=== PATIENT | female | born 1990 | race Hispanic/Latino ===

== ENCOUNTER 2018-02-28 03:59 | Inpatient (IN) | payer SELFPAY ==
[2018-02-28 04:47] LABS: ALT (SGPT) 16 U/L (8-55); AST (SGOT) 26 U/L (5-34); Albumin 4.8 g/dL (3.5-5.0); Alkaline Phosphatase 63 U/L (40-150); Anion Gap 11 mmol/L (10-20); BUN (Urea Nitrogen) 10 mg/dL (7.0-18.7); Bilirubin, Total 0.9 mg/dL (0.2-1.2); Calc. Creatinine Clearance 0 mL/min (70-130); Calcium 9.6 mg/dL (7.8-10.44); Carbon Dioxide 22 mmol/L (22-29); Chloride 104 mmol/L (98-107); Estimated GFR-MDRD 82; Globulin 3.7 g/dL (2.4-3.5); Glucose 135 mg/dL (70-105); Lipase 4 U/L (8-78); Potassium 3.4 mmol/L (3.5-5.1); Protein, Total 8.5 g/dL (6.0-8.3); Sodium 134 mmol/L (136-145)
[2018-02-28] MEDS ORDERED: Ondansetron ODT 4 MG TAB ONE (04:47)
[2018-02-28] MEDS ORDERED: Fentanyl 100 MCG/2 ML VIAL ONE (04:48)
[2018-02-28 04:50] LABS: Band 2 % (5-11); Eosinophils 4 % (0-10); Lymphocytes 58 % (21-51); MDiff Complete? YES; Mean Corpuscular HGB CONC 32.3 g/dL (32.0-36.0); Mean Corpuscular Hemoglobin 24.8 pg (27.0-31.0); Mean Corpuscular Volume 76.8 fl (81.0-99.0); Mean Platelet Volume 8.7 fL (7.4-10.4); Monocytes 4 % (0-10); Neutrophil 32 % (42-75); PLT Morphology Comment Appears Adequate; Platelet Count 245 thou/uL (130-400); RBC Distribution Width 19.9 % (11.5-14.5); Red Blood Cell (RBC) Count 4.42 mill/uL (4.20-5.40); White Blood Cell (WBC) Count 7.3 thou/uL (4.8-10.8)
[2018-02-28 06:28] LABS: Bilirubin Small (Negative); Blood, Urine Moderate (Negative); Clarity CLOUDY (Clear); Glucose, Urine (Dipstick) Negative (Negative); Leukocyte Small (Negative); Nitrite Negative (Negative); Protein, Urine (Dipstick) Trace mg/dL (Neg-Trace); Specific Gravity, Urine 1.029 (1.002-1.036); pH, Urine 5.5 (5.0-9.0)
[2018-02-28 06:33] LABS: Pregnancy Test - Urine (BHCG) Negative (Negative); Pregu Control Background? CLEAR/WHITE (CLR/WHITE); Pregu Control Bar Appear? YES (CONTROL BAR); Specific Gravity 1.029 (1.002-1.036)
[2018-02-28 07:18] LABS: Bacteria/HPF 1+ HPF (None Seen); Hyaline Casts/LPF NONE SEEN LPF (0-3 Hyaline); Squamous Epithelial 0-3 HPF (0-3); WBC/HPF 0-3 HPF (0-3)
[2018-02-28 07:25] LABS: Crystals/HPF RARE CA OXALATE HPF (Negative)
[2018-02-28] MEDS ORDERED: Mineral Oil ENEMA PR SCH (09:15)
--- NOTE | 2018-02-28 09:15 | CT ---
PRELIMINARY REPORT/[facility]/EMERGENTY AFTER-HOURS PROCEDURE Addendum created by Barney Crum MD on 02/28/2018 7:49 AM Central Time ([place] & [place]) CT images from were subsequently submitted for review. It appears the segment of sigmoid collapse/obstruction is new from prior. Initial Report created on 02/28/2018 7:27 AM Central Time ([place] & [place]) CT Abdomen and Pelvis With Intravenous Contrast CLINICAL HISTORY: 27 years old, female; Pain and signs and symptoms; Constipation; Abdominal pain; history of surgery f or imperforate anus with subsequent episodes of bowel obstruction. TECHNIQUE: Axial computed tomography images of the abdomen and pelvis with intravenous contrast. Coronal reforma tted images were created and reviewed. COMPARISON: No relevant prior studies available. FINDINGS: Lung bases: The visualized portions of the lung bases are normal. ABDOMEN: Liver: There are no focal liver lesions identified. Gallbladder and bile ducts: The gallbladder is normal. There is no evidence of biliary ductal dilatio n. The gallbladder is normal. There is no evidence of biliary ductal dilation. No calcified stones. Pancreas: The pancreas appears normal. No ductal dilation. Spleen: The spleen is normal. Adrenals: The adrenal glands are normal. Kidneys and ureters: The kidneys appear normal. No hydronephrosis. Stomach and bowel: There is marked retention of stool throughout the colon with dilatation of the rec magalys to 10.5 cm with collapse of the sigmoid colon and wall thickening suspicious for obstruction and/ or volvulus. The stomach is normal. The duodenum is unremarkable. PELVIS: Appendix: A normal appendix is identified. Bladder: Normal. No mass. Reproductive: The uterus is normal. ABDOMEN and PELVIS: Intraperitoneal space: Normal. No free air. No significant fluid collection. Bones/joints: No acute fracture. No dislocation. Soft tissues: Normal. Vasculature: Normal. No abdominal aortic aneurysm. Lymph nodes: Normal. No enlarged lymph nodes. IMPRESSION: There is marked retention of stool throughout the colon with dilatation of the rectum to 10.5 cm with collapse of the sigmoid colon and wall thickening suspicious for obstruction and/or volvulus. Correlation with prior imaging (not currently available) is advised. THIS REPORT CONTAINS FINDINGS THAT MAY BE CRITICAL TO PATIENT CARE. The findings were verbally communicated via telephone conference with Dr. Chan at 7:26 AM CDT on 02/28/2018. Th e findings were acknowledged and understood. Thank you for allowing us to participate in the care of your patient. Dictated and Authenticated by: Barney Crum MD 02/28/2018 7:27 AM Central Time ([place] & [place]) FINAL REPORT CT ABDOMEN AND PELVIS WITH CONTRAST: There is marked colonic stool retention involving the rectum and distal sigmoid colon. A portion of t he sigmoid colon is nondistended with stool as detailed in the preliminary report. There is some resi dual wall thickening of the sigmoid colon which may be chronic in nature within this area. The proxim al sigmoid colon is distended with prominent amounts of stool. No volvulus is demonstrated. There is a moderate amount of retained stool within the remaining distending colon, transverse colon, and cec um. Findings are consistent with severe chronic constipation. POS: JANIE
[2018-02-28] MEDS ORDERED: Polyethylene Glycol 3350 17 GM Packet PO ONE (10:15)
[2018-02-28] MEDS ORDERED: Sodium Chloride 0.9% 1,000 ML IV SCH (13:15)
[2018-02-28] MEDS ORDERED: GoLYTELY 4,000 ml Bottle PO SCH (13:15)
[2018-02-28 17:04] VITALS: BMI 24.3
[2018-02-28] MEDS ORDERED: Acetaminophen 500 MG TAB PO SCH (18:30)
[2018-02-28] MEDS ORDERED: Ondansetron HCl/PF 4 MG/2 ML Vial IVP PRN (19:27)
[2018-02-28] MEDS ORDERED: Ondansetron ODT 4 MG TAB PO PRN (19:27)
[2018-02-28] MEDS: Senokot 8.6 MG TAB PO SCH (21:06)
[2018-02-28] MEDS: Famotidine 20 MG TAB PO SCH (21:06)
[2018-02-28] MEDS: Milk Of Magnesia 30 ML UDCUP PO SCH (21:07)
[2018-02-28] MEDS: Bisacodyl 10 MG SUPP PR SCH (21:10)
[2018-02-28] MEDS: Sodium Chloride 0.9% 1,000 ML IV SCH (21:11)
[2018-03-01] MEDS ORDERED: Acetaminophen 500 MG TAB PO PRN (00:30)
--- NOTE | 2018-03-01 03:00 | HP ---
PRIMARY CARE PHYSICIAN: Luis A beltran. CHIEF COMPLAINT: Abdominal pain. HISTORY OF PRESENT ILLNESS: This is a 27-year-old female who presents to [facility] Emergency Department complaining of increasing abdominal pain, worsening over the last 24 hours, wa urbano her from sleep. Patient states she has longstanding history of constipation with a similar pres entation approximately 2 years ago to [facility] with obstipation, constipation, needing man ual disimpaction. Patient has tried increasing her fluid intake, MiraLax T as well as enemas at home without relief. Patient states that she has not had a significant bowel movement since 11/2017. James castro states she has had some small amounts of liquidy stool, but no significant volume since spring. Patient admits to history of difficulty with bowel movements after diagnosed with imperfora te anus as a child undergoing a colostomy with subsequent reanastomosis. Patient admits she underwen t a for her second child who is now 6 months of age without complication. Patient denies a [place] travel history, recent trauma, injury, or difficulty with urination. Patient states she has a sev ere cramping when attempting to have a bowel movement or bear down. In the emergency room, the patie nt underwent general evaluation including CT of the abdomen and pelvis showing massive stool retentio n with colonic dilation. Patient received multiple medications to include a mineral oil enema, Leonor ax, Zofran, normal saline, and fentanyl x1. Patient had no significant stool passage and was referre d to the Hospitalist Service for evaluation. PAST MEDICAL HISTORY: 1. 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 2. Chronic constipation. PAST SURGICAL HISTORY: 1. Status post colostomy with subsequent reanastomosis. 2. Status post section x2. CURRENT MEDICATIONS: MiraLax p.r.n. ALLERGIES: No known drug allergies. FAMILY HISTORY: No inheritable diseases per patient report. SOCIAL HISTORY: Patient is single, accompanied by her parents in the hospital. No current alcohol, tobacco, or illicit drug use. Resides in [place], [place]. Two children. REVIEW OF SYSTEMS: The following complete review of systems was otherwise negative, except as stated per HPI: Constitutional: Weight loss or gain, ability to conduct usual activities. Skin: Rash, i tching. Eyes: Double vision, pain. ENT/Mouth: Nose bleeding, neck stiffness, pain, tenderness. C ardiovascular: Palpitations, dyspnea on exertion, orthopnea. Respiratory: Shortness of breath, whe ezing, cough, hemoptysis, fever, or night sweats. Gastrointestinal: Poor appetite, abdominal pain, heartburn, nausea, vomiting, constipation, or diarrhea. Genitourinary: Urgency, frequency, dysuria, nocturia. Musculoskeletal: Pain, swelling. Neurologic/Psychiatric: Anxiety, depression. Allergy /Immunologic: Skin rash, bleeding tendency. PHYSICAL EXAMINATION: VITAL SIGNS: On admission, blood pressure 123/84, pulse 73, respiratory rate is 20, temperature 97.5 degrees Fahrenheit, O2 saturation 97% on room air. GENERAL APPEARANCE: This is a 27-year-old female, alert and oriented x3, pleasant, conversa nt, in no acute distress. HEENT: Pupils are equal, round, and reactive to light and accommodation. Extraocular muscles are in tact. No scleral icterus, no conjunctival injection. Nares patent. OP is clear. Teeth in good rep air. NECK: Supple, no cervical adenopathy, no thyromegaly, no carotid bruits, no JVD appreciated. Cervic al spine with full active and passive range of motion. CHEST: Lungs are clear to auscultation bilaterally. CARDIOVASCULAR: S1, S2, without noted murmur, rub, or gallop. ABDOMEN: Distended with tenderness to palpation diffusely. Bowel sounds are present diminished. Sanchez rgical scars in the abdomen consistent with prior surgical history. No rebound or guarding noted. EXTREMITIES: Warm and dry with fair turgor. No clubbing, cyanosis, or asymmetric edema appreciated. Pulses palpable distally at the dorsalis pedis, posterior tibial, and popliteal arteries bilaterall y. Capillary refill less than 2 seconds. NEUROLOGIC: Cranial nerves II-XII are grossly intact. No focal or lateralizing signs appreciated. PERTINENT LABORATORY DATA AND X-RAY FINDINGS: Sodium 134, potassium 3.4, chloride 104, CO2 of 22, BU N 10, creatinine 0.83, glucose 135, calcium 9.6. LFTs within normal limits. Lipase 4. CBC showed a white blood cell count 7.3, hemoglobin 11, hematocrit 34, MCV 77, platelet count 245 with 32% neutro phils. Urinalysis shows positive ketones, small leukocyte esterase. Urine beta hCG negative on 02/10. CT of the abdomen and pelvis dated 02/28/2018, showed marked colonic stool retention in the rectum and distal sigmoid colon and proximal sigmoid colon is distended with prominent amount of stoo l. No volvulus noted. ASSESSMENT AND PLAN: 1. Obstipation/severe constipation. Patient will be observed on the medical floor. We will consult GI service for recommendations and potential manual disimpaction. Patient with massive amount of re tained stool on CT imaging. We will attempt GoLYTELY in addition to Senokot, MiraLax, magnesium hydr oxide, and Dulcolax suppositories. Patient likely will need manual disimpaction due to the extensive volume. We will continue intravenous normal saline 100 mL per hour. 2. Microcytic anemia. Suspect secondary to iron deficiency. No current evidence to suggest acute b lood loss. Repeat CBC in the a.m. 3. Hypokalemia. Potassium supplementation and repeat potassium level in the a.m. 4. Abdominal pain secondary to #1. Continue symptomatic and supportive management. Tylenol 1000 mg p.o. q.6 hours p.r.n. 5. Prophylaxis. Sequential compression devices while in bed. Pepcid 20 mg p.o. b.i.d. 6. Code status is FULL. Surrogate medical decision maker is the patient's mother.
[2018-03-01 05:34] LABS: Band 6 % (5-11); Eosinophils 2 % (0-10); Hemoglobin 8.7 g/dL (12.0-16.0); Lymphocytes 27 % (21-51); MDiff Complete? YES; Mean Corpuscular HGB CONC 33.3 g/dL (32.0-36.0); Mean Corpuscular Hemoglobin 25.8 pg (27.0-31.0); Mean Corpuscular Volume 77.3 fL (78.0-98.0); Mean Platelet Volume 8.6 fL (7.4-10.4); Monocytes 3 % (0-10); Neutrophil 62 % (42-75); PLT Morphology Comment Appears Adequate; Platelet Count 195 thou/uL (130-400); RBC Distribution Width 19.6 % (11.5-14.5); Red Blood Cell (RBC) Count 3.39 mill/uL (4.20-5.40); White Blood Cell (WBC) Count 7.3 thou/uL (4.8-10.8)
[2018-03-01 06:07] LABS: Anion Gap 10 mmol/L (10-20); BUN (Urea Nitrogen) 6 mg/dL (7.0-18.7); Calc. Creatinine Clearance 119 mL/min (70-130); Calcium 7.8 mg/dL (7.8-10.44); Carbon Dioxide 24 mmol/L (22-29); Chloride 107 mmol/L (98-107); Estimated GFR-MDRD Greater than 90; Glucose 78 mg/dL (70-105); Potassium 3.2 mmol/L (3.5-5.1); Sodium 138 mmol/L (136-145)
[2018-03-01] MEDS: Milk Of Magnesia 30 ML UDCUP PO SCH ×4 (09:00→21:56)
[2018-03-01] MEDS: Sodium Chloride 0.9% 1,000 ML IV SCH ×2 (09:00→18:54)
[2018-03-01] MEDS: Senokot 8.6 MG TAB PO SCH ×2 (09:00→21:56)
[2018-03-01] MEDS: Bisacodyl 10 MG SUPP PR SCH ×3 (09:05→21:54)
[2018-03-01] MEDS: Famotidine 20 MG TAB PO SCH ×2 (09:06→21:54)
--- NOTE | 2018-03-01 16:19 | PDOC.PN ---
- Subjective Encounter Start Date: 03/01/18 Encounter Start Time: 16:05 Subjective: f/u for severe constipation and fecal impaction. No significant BM with -: Golytely, Senna and Dulcolax. - Objective Resuscitation Status: Resuscitation Status FULL:Full Resuscitation MAR Reviewed: Yes Vital Signs & Weight: Vital Signs (12 hours) Temp Pulse Resp BP BP Pulse Ox 03/01/18 15:27 98.9 F 63 16 121/82 97 03/01/18 14:38 98.9 F 63 16 100 03/01/18 13:40 98.4 F 68 18 133/83 100 03/01/18 11:32 99.0 F 66 12 110/67 98 03/01/18 08:20 98.9 F 68 12 03/01/18 08:05 98.9 F 68 12 111/71 95 03/01/18 04:55 66 18 97/56 L 95 Weight Admit Weight 137 lb Weight 137 lb I&O: 02/28/18 03/01/18 03/02/18 06:59 06:59 06:59 Intake Total 2188 Output Total 700 Balance 1488 Result Diagrams: 03/01/18 04:01 03/01/18 04:01 Additional Labs: Laboratory Tests 02/28/18 02/28/18 04:23 04:23 Hgb 11.0 L Potassium 3.4 L Phys Exam - Physical Examination Constitutional: NAD HEENT: PERRLA, sclera anicteric, oral pharynx no lesions Neck: no nodes, no JVD, supple, full ROM Respiratory: no wheezing, no rales, no rhonchi, clear to auscultation bilateral S1, S2 Cardiovascular: RRR, no significant murmur, no rub, gallop TTP diffusely Gastrointestinal: soft, positive bowel sounds Musculoskeletal: no edema, pulses present Neurological: non-focal, normal sensation, moves all 4 limbs Psychiatric: normal affect, A&O x 3 Skin: no rash, normal turgor, cap refill <2 seconds Dx/Plan (1) Fecal impaction Code(s): K56.41 - FECAL IMPACTION Status: Acute Comment: Consult GI and Gen Surgery for assistance, likely will need manual disimpaction under anesthesia due to volume of retained stool (2) Abdominal pain Code(s): R10.9 - UNSPECIFIED ABDOMINAL PAIN Status: Acute Qualifiers: Abdominal location: generalized Qualified Code(s): R10.84 - Generalized abdominal pain Comment: Secondary to #1, continue supportive mgmt, see above (3) Obstipation Code(s): K59.00 - CONSTIPATION, UNSPECIFIED Status: Chronic Comment: See #1 for mgmt, stool softeners, suppositories (4) Hypokalemia Code(s): E87.6 - HYPOKALEMIA Status: Acute Comment: K-dur 40meq BID, repeat K+ level in am - Plan out of bed/ambulate, DVT proph w/SCDs Stable overall -: Convert to inpt status to fecal impaction -: Continue IVF's NS 100ml/h -: KCL 40meq BID -: Gen Surgery consult for likely disimpaction under anesthesia * AM lab: BMP, CBC
[2018-03-01] MEDS: Potassium Chloride 20 MEQ TAB PO SCH (17:57)
[2018-03-01] MEDS ORDERED: Mineral Oil PER 1 ML PR SCH (18:00)
[2018-03-01] MEDS ORDERED: GLYCERIN FS SCH (18:00)
--- NOTE | 2018-03-01 19:43 | CON ---
DATE OF CONSULTATION: 03/01/2018 REASON FOR CONSULTATION: Abdominal pain and constipation. CONSULTING PHYSICIAN: Dr. Ike Lindo. HISTORY OF PRESENT ILLNESS: The patient is a 27-year-old female with past medical history of imperforate anus status post surgical correction with colostomy placement and ultimately reanastomosis as well as chronic constipation presenting with complaints of increased abdominal pain. She states that in 11/2017, she underwent in [place], [place] with no perioperative complications, but was given pain medications on discharge including hydrocodone and a stool softener. However, since that time she was unable to have a true solid bowel movement where she would go approximately 2-3 weeks with only a small volume of liquid bowel movement consisting primarily of brown water. As such, she has not had a solid bowel movement since 11/2017 and has been experiencing progressive worsening of her abdominal pain in the meantime. Her abdominal pain is located primarily in the right lower quadrant, suprapubic, and left lower quadrant of her abdomen. The pain is characterized as an aching/cramping type sensation and will radiate to the entire lower abdomen. It is constant and reaches a severity of 6-7/10. There is no clear alleviating or exacerbating factors. This is also associated with the inability to adequately have a bowel movement where she describes that she has the sensation that something is there, but "he feels like it gets blocked by something." With worsening of her abdominal pain over the last few weeks, this prompted her to seek admission for further evaluation. While in the ER, she underwent a CT scan of the abdomen and pelvis showing massive stool retention and colonic dilatation with the rectum reaching approximately 10.5 cm in diameter. As an outpatient, she had been taking MiraLax 1-2 capsules per day along with stool softeners, mineral oil and Zofran as needed with minimal relief in her symptoms. REVIEW OF SYSTEMS: A 10-category review of systems was obtained with all responses negative except for the pertinent positives as well as in the HPI. PAST MEDICAL HISTORY: Imperforate anus status post colostomy and reanastomosis , chronic constipation. PAST SURGICAL HISTORY: Left-sided colostomy with colonic reanastomosis, C- sections x2. FAMILY HISTORY: Denies any GI malignancies. SOCIAL HISTORY: Denies any tobacco, alcohol or illicit drug use. OUTPATIENT MEDICATIONS: MiraLax 1-2 capsules per day, stool softener. ALLERGIES: No known drug allergies. PHYSICAL EXAMINATION: VITAL SIGNS: Temperature 98.9, pulse 63, blood pressure 121/82, respiratory rate 16, satting 97% on room air. GENERAL: The patient is lying in bed in no acute distress. Alert and oriented x4. NECK: Supple. No JVD noted. CARDIOVASCULAR: Regular rate and rhythm with no discernible murmurs, gallops or rubs. RESPIRATORY: Clear to auscultation bilaterally with no discernible wheezes or rales. ABDOMEN: Hypoactive bowel sounds, soft, mild to moderate abdominal distention. Tenderness to palpation into both light and deep palpation in the periumbilical, left flank and lower abdominal quadrants. A mass was palpated in the left flank extending into the left lower quadrant as well. EXTREMITIES: No cyanosis, clubbing or edema. LABORATORY DATA: CBC with a white blood cell count of 7.3, hemoglobin 8.7, hematocrit 26.2, and platelets 195. Chemistry with sodium of 138, potassium 3.2 , chloride 107, CO2 24, BUN 6, creatinine 0.69 and glucose 78. IMAGING DATA: CT of the abdomen/pelvis obtained on 02/28/2018 showed no focal liver lesions or gallbladder pathology; however, there was marked retention of stool throughout the colon with dilation of the rectum to 10.5 cm with collapse of the sigmoid colon and wall thickening which was felt to be more chronic in nature due to chronic constipation. There was also moderate amount of retained stool seen within the descending colon, transverse and cecum. ASSESSMENT AND PLAN: The patient is a 27-year-old female with past medical history of imperforate anus status post colostomy and reanastomosis and chronic constipation presenting with markedly increased amounts of colonic stool burden consistent with obstipation. Constipation. The patient is presenting with a recent history of childbirth in 11/2017 with a performed in [place], [place]. Upon discharge, she was given narcotics for pain relief related to the and since that time she has had significant difficulty having a bowel movement. Per patient, she was having approximately one small volume liquid bowel movement every 2-3 weeks in addition to progressively worsening abdominal pain over the last 2-3 months. As such, she has had significant difficulty having a solid stool bowel movement with the sensation that the stool is being blocked by something with increased abdominal pressure. Based on the CT scan findings on admission, she has a significant amount of retained stool within the left colon consistent with obstipation. Manual disimpaction was attempted today with a very large solid stool plug felt within the rectal vault that was only minimally amenable to disimpaction. I was able to break up the stool to a mild to moderate degree, but given the significant discomfort she experienced during the disimpaction, this might be better suited under general anesthesia. RECOMMENDATIONS: 1. We will consult General Surgery Service for evaluation of the patient and fecal disimpaction under general anesthesia. 2. We will hold off on additional administration of GoLYTELY until scheduled for the procedure. 3. We will order a Fleet's enema/tap water enema for further treatment or to break apart the existing stool plug. 4. Patient will need to be on a bowel regimen on discharge given the chronic nature of her constipation to probably include addition of linaclotide and/or MiraLax supplement. We will continue to follow. Please call with any questions. NNAMDI
--- NOTE | 2018-03-01 22:47 | CON ---
DATE OF CONSULTATION: 03/01/2018 CHIEF COMPLAINT: Constipation and obstipation. HISTORY OF PRESENT ILLNESS: This is a 27-year-old female who has a history of imperforate anus with previous ileoanal pull-through and temporary diverting colostomy as a child. She states that she has had chronic constipation, but no significant need for impaction in her early adult life. She had a in November of this year and since then she has had severe constipation and had very much diff iculty since then. She is now not have a bowel movement for a few weeks. She has tried multiple candi mas, she has tried multiple regimens as an outpatient. She is admitted for severe bloating and obstr uction of her colon from this impacted stool. Attempts disimpaction at the bedside by Dr. Church were unsuccessful. PAST MEDICAL HISTORY: Includes perforated anus, chronic constipation. PAST SURGICAL HISTORY: As above. MEDICINES: MiraLax p.r.n. ALLERGIES: No known drug allergies. FAMILY HISTORY: Noncontributory to GI malignancy or anesthesia related complications. SOCIAL HISTORY: She is single, lives in [place], 2 children. No smoking, alcohol, or other drugs. REVIEW OF SYSTEMS: Ten-system review of systems otherwise negative unless described above. PHYSICAL EXAMINATION: VITAL SIGNS: Blood pressure is 121/82, pulse 63, respirations 16. She is afebrile. HEENT: Sclerae are anicteric. Oropharynx clear. NECK: No lymphadenopathy. CHEST: Clear. HEART: Regular rate and rhythm. ABDOMEN: Soft but distended, tender suprapubic. No guarding or rebound. X-RAY FINDINGS: Review of her CT shows the large amount of retained stool in her left colon. ASSESSMENT: Impaction of stool with history of imperforate anus. PLAN: Manual disimpaction in the OR tomorrow. Plan additional enema in the morning.
[2018-03-02] MEDS: Sodium Chloride 0.9% 1,000 ML IV SCH ×4 (05:51→23:57)
[2018-03-02 06:18] LABS: Anion Gap 11 mmol/L (10-20); BUN (Urea Nitrogen) 7 mg/dL (7.0-18.7); Calc. Creatinine Clearance 124 mL/min (70-130); Carbon Dioxide 20 mmol/L (22-29); Chloride 109 mmol/L (98-107); Estimated GFR-MDRD Greater than 90; Glucose 63 mg/dL (70-105); Potassium 3.7 mmol/L (3.5-5.1); Sodium 136 mmol/L (136-145)
[2018-03-02 06:33] LABS: Eosinophils 1 % (0-10); Hemoglobin 8.7 g/dL (12.0-16.0); Lymphocytes 57 % (21-51); MDiff Complete? YES; Mean Corpuscular HGB CONC 32.1 g/dL (32.0-36.0); Mean Corpuscular Hemoglobin 25.4 pg (27.0-31.0); Mean Platelet Volume 8.7 fL (7.4-10.4); Monocytes 3 % (0-10); Neutrophil 39 % (42-75); Platelet Count 204 thou/uL (130-400); Red Blood Cell (RBC) Count 3.45 mill/uL (4.20-5.40)
[2018-03-02] MEDS ORDERED: GLYCERIN FS SCH (07:00)
[2018-03-02] MEDS ORDERED: Mineral Oil PER 1 ML PR SCH (07:00)
[2018-03-02] MEDS: Potassium Chloride 20 MEQ TAB PO SCH ×2 (10:59→18:27)
[2018-03-02] MEDS: Famotidine 20 MG TAB PO SCH ×2 (10:59→21:02)
[2018-03-02] MEDS: Bisacodyl 10 MG SUPP PR SCH (10:59)
[2018-03-02] MEDS: Milk Of Magnesia 30 ML UDCUP PO SCH ×3 (10:59→18:28)
[2018-03-02] MEDS: Senokot 8.6 MG TAB PO SCH ×2 (11:00→21:03)
[2018-03-02] MEDS ORDERED: Fentanyl 100 MCG/2 ML VIAL ONE (12:17)
[2018-03-02] MEDS ORDERED: Midazolam HCl 2 mg/2 ml Vial ONE (12:17)
--- NOTE | 2018-03-02 13:20 | OP ---
DATE OF PROCEDURE: 03/02/2018 PREOPERATIVE DIAGNOSIS: Fecal impaction. POSTOPERATIVE DIAGNOSES: Fecal impaction. PROCEDURE PERFORMED: Fecal disimpaction an exam under anesthesia. SURGEON: Curtis Fatima M.D. ANESTHESIA: General. ESTIMATED BLOOD LOSS: Minimal. COMPLICATIONS: None. SPECIMEN: None. FINDINGS: Significant amount of retained stool in the rectum, removed via impaction. No other patho logy in the entire exam and rectum anal canal. TECHNIQUE: The patient was taken to the operating room and placed supine on the table. After genera l anesthetic was obtained, she was placed in lithotomy position. Her perineum was prepped and draped in a sterile fashion. Two, then three fingers used to dilate the anal canal. Pushing suprapubic wi th left hand, the stools able to be disimpacted from the rectum below. There was a tear made anterio rly. There is a partial thickness through just the mucosa of the anal canal. It did not involve the posterior wall of the vagina. The rectal vault is completely empty at the end of the procedure. Th e patient is en route to recovery in stable condition. All instrument counts, needle counts, lap cou nts were correct.
[2018-03-02] MEDS ORDERED: Magnesium Citrate 300 ML BOT PO PRN (17:51)
--- NOTE | 2018-03-02 18:52 | PDOC.PN ---
- Subjective Encounter Start Date: 03/02/18 Encounter Start Time: 17:20 Subjective: f/u for fecal impaction s/p manual disimpaction under anesthesia. Feels -: less full and still sleepy from anesthesia. No N/V. - Objective Resuscitation Status: Resuscitation Status FULL:Full Resuscitation MAR Reviewed: Yes Vital Signs & Weight: Vital Signs (12 hours) Temp Pulse Resp BP Pulse Ox 03/02/18 13:40 97.7 F 65 18 125/87 98 03/02/18 11:00 97.9 F 65 18 111/77 97 03/02/18 08:53 97.9 F 65 18 98 03/02/18 07:24 98.9 F 87 18 147/99 H 98 Weight Admit Weight 137 lb Weight 137 lb I&O: 03/01/18 03/02/18 03/03/18 06:59 06:59 06:59 Intake Total 2188 1230 Output Total 700 Balance 1488 1230 Result Diagrams: 03/02/18 05:25 03/02/18 05:25 Additional Labs: Laboratory Tests 02/28/18 02/28/18 03/01/18 04:23 04:23 04:01 Hgb 11.0 L Potassium 3.4 L 3.2 L 03/01/18 04:01 Hgb 8.7 L Potassium Phys Exam - Physical Examination Constitutional: NAD pale, alert, responsive HEENT: PERRLA, sclera anicteric, oral pharynx no lesions Neck: no nodes, no JVD, supple, full ROM Respiratory: no wheezing, no rales, no rhonchi, clear to auscultation bilateral S1, S2 Cardiovascular: RRR, no significant murmur, no rub, gallop Gastrointestinal: soft, non-tender, no distention, positive bowel sounds Musculoskeletal: no edema, pulses present Neurological: non-focal, normal sensation, moves all 4 limbs Psychiatric: normal affect, A&O x 3 Skin: no rash, normal turgor, cap refill <2 seconds Dx/Plan (1) Fecal impaction Code(s): K56.41 - FECAL IMPACTION Status: Acute Comment: s/p manual disimpaction under anesthesia, continue bowel regimen, will need close follow up after discharge and custodial (2) Abdominal pain Code(s): R10.9 - UNSPECIFIED ABDOMINAL PAIN Status: Acute Qualifiers: Abdominal location: generalized Qualified Code(s): R10.84 - Generalized abdominal pain Comment: Secondary to #1, continue supportive mgmt, see above, resolving (3) Obstipation Code(s): K59.00 - CONSTIPATION, UNSPECIFIED Status: Chronic Comment: See #1 for mgmt, stool softeners, suppositories (4) Hypokalemia Code(s): E87.6 - HYPOKALEMIA Status: Acute Comment: K-dur 40meq BID, repeat K+ level in am (5) Microcytic anemia Code(s): D50.9 - IRON DEFICIENCY ANEMIA, UNSPECIFIED Status: Chronic Comment : Care Home iron supplementation and serial monitoring as outpt, CBC in am - Plan clinical social work therapist, out of bed/ambulate, DVT proph w/SCDs Stable currently -: Start Regular diet -: Continue IVF's another 24h -: KCL supplementation -: AM lab: CBC, Iron, Ferritin, Retic count * Likely home in 24h
--- NOTE | 2018-03-02 19:49 | PRG ---
DATE OF SERVICE: 03/02/2018 REASON FOR CONSULTATION: Constipation/obstipation. SUBJECTIVE: Patient did have some continued pain overnight, but this was ultimately relieved upon fe joel disimpaction in the operating room with anesthesia. Currently, she is doing well with no further complaints of abdominal pain, but rather abdominal soreness, both in her abdomen and at the anal vidhi fice. Currently, denies any nausea, vomiting, fevers, chills, dysphagia, odynophagia, diarrhea or co nstipation. OBJECTIVE: VITAL SIGNS: Temperature 97.7, pulse 65, blood pressure 125/87, respiratory rate 18, satting 98% on room air. GENERAL: Patient is lying in bed in no acute distress. Alert and oriented x4. CARDIOVASCULAR: Regular rate and rhythm. RESPIRATORY: Clear to auscultation bilaterally. ABDOMEN: Hypoactive bowel sounds, soft, nondistended, minimal tenderness to palpation in all abdomin al quadrants. EXTREMITIES: No cyanosis, clubbing or edema. LABORATORY DATA: CBC with a white blood cell count of 6.0, hemoglobin 8.7, hematocrit 27.2, platelet s 204. Chemistry with a sodium 136, potassium 3.7, chloride 109, carbon dioxide 20, BUN 7, creatinin e 0.66, glucose 63. IMAGING DATA: Operative report from 03/02/2018; details, dilation of the anal canal with manual disi mpaction through the rectum and a small anterior tear made during the procedure itself the rectum and proximal distal left colon was successfully disimpacted with a significant amount of stool removed f rom these areas. 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 1. Constipation. The patient is presenting with a history of imperforate anus that was surgically c orrected when she was a child with reanastomosis when she was younger. However, over the last 3 ramsey hs, she had been complaining of increased constipation since the of her last child and C-sectio n. Upon admittance to the hospital here during this hospitalization, she was noted to have a CT scan that showed significant amount of retained stool within the left colon consistent with obstipation. Bedside manual disimpaction was attempted on 03/01/2018 with a very large stool plug fell, but able to be adequately removed. She was ultimately taken to the operating room on 03/02/2018 and under ane sthesia was able to be successfully disimpacted, currently doing well with significant alleviation of her abdominal pain. RECOMMENDATIONS: 1. We will place patient on lubiprostone 24 mcg twice daily as part of maintenance therapy for chron ic constipation. 2. We will have magnesium citrate as needed for increased constipation while inpatient. 3. We would avoid any narcotics as this would predispose her to further constipation and probable im paction. 4. We will have the patient follow up in the GI clinic within 1-2 weeks of discharge for further nata luation and maintenance therapy. We will sign off at this time. Please call with any additional questions.
[2018-03-02] MEDS: Lubiprostone 24 MCG CAP PO SCH (21:25)
[2018-03-03 05:20] LABS: Reticulocyte Count 1.3 % (0.5-1.5)
[2018-03-03 07:40] LABS: Hemoglobin 9.4 g/dL (12.0-16.0); Mean Corpuscular HGB CONC 32.4 g/dL (32.0-36.0); Mean Corpuscular Hemoglobin 26.1 pg (27.0-31.0); Mean Corpuscular Volume 80.4 fL (78.0-98.0); Mean Platelet Volume 8.5 fL (7.4-10.4); Platelet Count 244 thou/uL (130-400); RBC Distribution Width 20.2 % (11.5-14.5); Red Blood Cell (RBC) Count 3.59 mill/uL (4.20-5.40); White Blood Cell (WBC) Count 6.4 thou/uL (4.8-10.8)
[2018-03-03] MEDS: Lubiprostone 24 MCG CAP PO SCH (08:26)
[2018-03-03] MEDS: Potassium Chloride 20 MEQ TAB PO SCH (08:26)
[2018-03-03] MEDS: Senokot 8.6 MG TAB PO SCH (08:27)
[2018-03-03] MEDS: Famotidine 20 MG TAB PO SCH (08:27)
[2018-03-03 09:04] LABS: Anisocytosis MODERATE=16-30 cells (100X) (0-5/hpf); Band 9 % (5-11); Eosinophils 6 % (0-10); Lymphocytes 32 % (21-51); MDiff Complete? YES; Monocytes 3 % (0-10); Neutrophil 50 % (42-75); Polychromasia SLIGHT = 2-3 cells (100X) (0-2/hpf)
[2018-03-03] MEDS: Sodium Chloride 0.9% 1,000 ML IV SCH (11:20)
--- NOTE | 2018-03-03 13:43 | DIS ---
DATE OF ADMISSION: 02/28/2018 DATE OF DISCHARGE: 03/03/2018 DISCHARGE DIAGNOSES: 1. Fecal impaction. 2. Status post manual disimpaction under anesthesia. 3. Abdominal pain secondary to #1, improved. 4. Obstipation. 5. History of imperforate anus. 6. Hypokalemia. 7. Microcytic anemia. CONSULTATIONS: Dr. Fatima with General Surgery Service. Dr. Church with GI service. PERTINENT LABORATORY AND X-RAY FINDINGS: Sodium ranged between 134-138, potassium ranged between 3.2 -3.7, serum iron level 23, ferritin 9.3, lipase 4. CBC showed a hemoglobin ranging between 8.7-11. CT of the abdomen and pelvis dated 02/28/2018 showed marked colonic stool retention in the rectum and distal sigmoid colon. Moderate amount of retained stool in the descending colon, transverse colon, and cecum. HOSPITAL COURSE: Patient was admitted to the medical floor after presenting with severe abdominal pa in with associated severe chronic constipation/obstipation and stool impaction. The patient with a h istory of imperforate anus from her childhood, status post reanastomosis, presenting with severe cons tipation. CT of the abdomen and pelvis confirmed the presence of large impaction in the rectum to th e transverse colon. The patient was placed on multiple medications including stool softeners and bow el stimulants without success. The patient received mineral oil enemas without success. The patient was evaluated by the GI and General Surgery Service with recommendations to proceed to the manual di simpaction under anesthesia. The patient underwent the procedure on 03/02/2018 with successful disim paction of the colon. The patient tolerated the procedure well and post procedure has been toleratin g regular oral intake with decreased abdominal discomfort. Overall, patient remained clinically stab le during the hospital course. I have examined the patient at the time of discharge and discussed pe rtinent laboratory findings as well as outpatient followup instructions. The patient verbalized unde rstanding and agreement and we will discharge home on 03/03/2018. DISCHARGE MEDICATIONS: 1. MiraLax 2 packs p.o. daily. 2. Magnesium citrate half a bottle twice daily. FOLLOWUP: Patient will follow up with the GI service with Dr. Church within 2 weeks after discharge. CONDITION ON DISCHARGE: Fair. ACTIVITY: Ad maryellen. DIET: Regular. CODE STATUS: FULL. DISPOSITION: Home, 03/03/2018. Total time in preparing and coordinating discharge 33 minutes.
[2018-03-03 14:02] VITALS: BP 114/79; TEMP 98.6
== END 2018-03-03 15:20 | disposition home or self-care (01) | DRG 390 ==
LOC: ERS 03:59 → 2SW 11:30 → OBSVTOIN 11:30 → SURG A 03-01 13:28
PROVIDERS: ADMIT Family Medicine; ATTEND Family Medicine
PROC: 0DCP7ZZ Extirpation of Matter from Rectum, Via Natural or Artificial Opening (ICD-10-PCS; principal; 2018-03-02)
DX: K56.41 Fecal impaction (principal); D50.9 Iron deficiency anemia, unspecified; E87.6 Hypokalemia; Z87.19 Personal history of other diseases of the digestive system
CPT/HCPCS: 36415; 74177; 80048; 80053; 81003; 81015; 81025; 82728; 83540; 83690; 85007; 85025; 85027; 85046; 96361; 96374; J2250; J3010; Q0162

== ENCOUNTER 2018-03-23 14:00 | Day surgery (SDC) | payer SELFPAY ==
[2018-03-22 12:38] VITALS: BMI 23.9
[2018-03-23] MEDS ORDERED: Lidocaine 1% PF 5 ML VIAL ONE (14:21)
[2018-03-23] MEDS ORDERED: PROPOFOL 200 MG/20 ML VIAL ONE (14:21)
[2018-03-23 15:27] LABS: BHCG - Serum Negative (NEGATIVE); Pregs Control Background? CLEAR/WHITE (CLR/WHITE); Pregs Control Bar Appear? YES (CONTROL BAR)
[2018-03-23] MEDS ORDERED: Fleet Enema 133 ML BOT PR SCH (17:45)
--- NOTE | 2018-03-24 10:26 | OP ---
DATE OF OPERATION: 03/23/2018 PREOPERATIVE DIAGNOSES: Recurrent problems with fecal impaction and abdominal pain and diarrhea. POSTOPERATIVE DIAGNOSES: Recurrent problems with fecal impaction and abdominal pain and diarrhea. PROCEDURE: Colonoscopy with fecal disimpaction. ANESTHESIA: TIVA. RECOMMENDATIONS: 1. Follow up with Dr. Bee in 1 week. 2. Start bowel regimen, will need to drink 1 gallon of GoLYTELY for the next 48 hours at home to hel p finish to clean out. 3. Then I would recommend MiraLax 17 grams in 8 ounces of water daily, Senokot-S p.o. b.i.d. 4. She will need to do a bowel regimen with rectal stimulation and enemas. This could be done eithe r every third day with Dulcolax suppository and Fleet enema or if this causes incontinence and that i mpairs her ability to function on a daily basis. She can pick one day a week preferably on the wee[place] nd to do a clean out with 2 or 3 bottles of magnesium citrate, Dulcolax suppositories and enemas unti l her bowels are clear. PROCEDURE IN DETAIL: The patient was informed the risks, benefits, possible complications of endosco py including perforation, reactions to medication and aspiration, informed consent was obtained. The patient was brought to endoscopy suite where she was sedated in gradual fashion. Once she was comfo rtable, rectal exam was performed revealing a large bowling ball size fecal impaction. This was main ly disimpacted and removed. Above this, there was other stool that was able to be brought down by fi nger digital disimpaction with pressure in the abdomen. Once remaining, the rectum was irrigat ed on three different occasions with Fleet enemas and tap water. It was able to clear it in past. O nce the stool was very soupy and liquid, the scope was carefully introduced in to the rectum and adva nced through the colon. We were able to advance this to other large areas of formed stool that past safely to the right colon. The cecal valve could be visualized, but the cecum could not. There was a large, but not of stool here in this region as well. The scope was removed. The patient does have very lax sphincter tone related to previous surgery for imperforate anus. These instructions were given to her for a bowel regimen, so alternatively to move to something like a colostomy where she could extend her bowel regimen on a daily basis without problems with incontine nce. I suspect that the main issue is that when she gets her bowels loose not to keep it moving, she cannot control it because of her previous anal and rectal surgeries and incontinence bothers her. F or that reason, given her an option to do weekly bowel regimen, which would continue 1 day a we ek, instead of every day.
== END 2018-03-23 19:30 | disposition home or self-care (01) ==
LOC: SDC 14:00
PROVIDERS: ATTEND Internal Medicine Gastroenterology
PROC: 0DCP8ZZ Extirpation of Matter from Rectum, Via Natural or Artificial Opening Endoscopic (ICD-10-PCS; principal; 2018-03-23)
DX: K56.41 Fecal impaction (principal); Z79.899 Other long term (current) drug therapy; Z98.890 Other specified postprocedural states
CPT/HCPCS: 84703; J2001; J2704

== ENCOUNTER 2021-02-15 18:24 | Emergency (ER) | payer OTHER, SELFPAY ==
[2021-02-15 19:00] LABS: #Lymphocytes 1.9 thou/uL (1.20-3.40); #Monocytes 0.3 thou/uL (0.11-0.59); #Neutrophils 13.4 thou/uL (1.40-6.50); %Basophils 0.1 % (0.0-1.0); %Eosinophils 0.1 % (0.0-10.0); %Lymphocytes 12.1 % (21.0-51.0); %Monocytes 1.9 % (0.0-10.0); %Neutrophils 85.8 % (42.0-75.0); Hemoglobin 12.8 g/dL (12.0-16.0); Mean Corpuscular HGB CONC 32.6 g/dL (32.0-36.0); Mean Corpuscular Hemoglobin 25.4 pg (27.0-31.0); Mean Corpuscular Volume 77.9 fL (78.0-98.0); Mean Platelet Volume 7.8 fL (7.4-10.4); Platelet Count 392 thou/uL (130-400); RBC Distribution Width 15.1 % (11.5-14.5); Red Blood Cell (RBC) Count 5.03 mill/uL (4.20-5.40); White Blood Cell (WBC) Count 15.6 thou/uL (4.8-10.8)
[2021-02-15 19:02] LABS: Bilirubin Negative (Negative); Blood, Urine Negative (Negative); Clarity Clear (Clear); Glucose, Urine (Dipstick) Negative (Negative); Ketone, Urine 40 mg/dL (Negative); Leukocyte Negative (Negative); Nitrite Negative (Negative); Protein, Urine (Dipstick) 100 mg/dL (Neg-Trace); Specific Gravity, Urine 1.025 (1.005-1.030); Urobilinogen 0.2 mg/dL (Less than 2)
[2021-02-15 19:04] LABS: Pregnancy Test - Urine (BHCG) Negative (Negative); Pregu Control Background? CLEAR/WHITE (CLR/WHITE); Pregu Control Bar Appear? YES (CONTROL BAR); Specific Gravity 1.025 (1.002-1.036)
[2021-02-15 19:09] LABS: Bacteria/HPF Rare-Few HPF (None Seen); RBC/HPF 0-3 HPF (0-3)
[2021-02-15 19:20] LABS: ALT (SGPT) 18 U/L (8-55); AST (SGOT) 20 U/L (5-34); Albumin 4.9 g/dL (3.5-5.0); Alkaline Phosphatase 90 U/L (40-110); Anion Gap 16 mmol/L (10-20); BUN (Urea Nitrogen) 8 mg/dL (7.0-18.7); Bilirubin, Total 0.4 mg/dL (0.2-1.2); Calc. Creatinine Clearance 0 mL/min (70-130); Calcium 9.7 mg/dL (7.8-10.44); Carbon Dioxide 22 mmol/L (22-29); Chloride 103 mmol/L (98-107); Globulin 3.9 g/dL (2.4-3.5); Glucose 122 mg/dL (70-105); Potassium 3.7 mmol/L (3.5-5.1); Protein, Total 8.8 g/dL (6.0-8.3); Sodium 137 mmol/L (136-145)
[2021-02-15] MEDS ORDERED: Lidocaine Viscous Sol 2% 15 ml UD Cup ONE (19:32)
[2021-02-15] MEDS ORDERED: Mag-Al 1200 mg/1200 mg/30 ML UDCUP ONE (19:32)
[2021-02-15] MEDS ORDERED: Ondansetron PF 4 MG/2 ML Vial ONE (19:32)
[2021-02-15] MEDS ORDERED: Pantoprazole 40 MG VIAL ONE (19:32)
== END 2021-02-15 21:55 | disposition home or self-care (01) ==
LOC: ERS 18:24
DX: N39.0 Urinary tract infection, site not specified (principal); E86.0 Dehydration
CPT/HCPCS: 36415; 80053; 81003; 81015; 81025; 83690; 85025; 87086; 96374; 96375; C9113; J2405

== ENCOUNTER 2023-09-25 11:22 | Emergency (ER) | payer SELFPAY ==
[2023-09-25] MEDS ORDERED: Ibuprofen 200 MG TAB ONE (12:23)
[2023-09-25 12:31] LABS: Bacteria/HPF None Seen HPF (None Seen); Bilirubin Negative (Negative); Blood, Urine 3+ (Negative); CAUTI Indications for Culture Dysuria,urgency,freq; Clarity Turbid (Clear); Glucose, Urine (Dipstick) Normal (Negative); Ketone, Urine Negative (Negative); Leukocyte 25 Leu/uL (Negative); Nitrite Negative (Negative); Protein, Urine (Dipstick) 20 mg/dL (Neg-Trace); RBC/HPF Greater than 50 HPF (0-3); Specific Gravity, Urine 1.017 (1.002-1.036); Squamous Epithelial 0-3 HPF (0-3); Urobilinogen Normal mg/dL (Less than 2)
[2023-09-25 12:31] LABS: SARS-CoV-2 NAA Rapid Test Not Detected (NotDetected)
[2023-09-25 12:35] LABS: Pregnancy Test - Urine (BHCG) Negative (Negative); Pregu Control Background? CLEAR/WHITE (CLR/WHITE); Pregu Control Bar Appear? YES (CONTROL BAR); Specific Gravity 1.017 (1.002-1.036); Urine Culture Reflex No No
[2023-09-25] MEDS ORDERED: Bicillin LA 2.4 MILL.UNITS/4 ML SYRINGE ONE (13:04)
== END 2023-09-25 13:39 | disposition home or self-care (01) ==
LOC: ERS 11:22
DX: J02.0 Streptococcal pharyngitis (principal); J11.1 Influenza due to unidentified influenza virus with other respiratory manifestations; R82.90 Unspecified abnormal findings in urine
CPT/HCPCS: 81001; 81025; 87430; 99284; J0561